=== PATIENT | female | born 1990 | race Caucasian/White ===

== ENCOUNTER 2021-12-31 08:18 | Inpatient (IN) ==
[2021-12-31] MEDS ORDERED: OXYTOCIN 30 UNITS/500 ML BAG IV PRN ×3 (09:02→17:21)
[2021-12-31] MEDS ORDERED: LIDOCAINE 1% LOCAL 20 ML VIAL INFIL PRN (09:02)
[2021-12-31] MEDS ORDERED: PENICILLIN G POTASSIUM 6 MU in DEXTROSE 5% 250 ML IV STA (09:04)
[2021-12-31] MEDS: LACTATED RINGER'S 1,000 ML IV PRN ×2 (09:23→15:40)
--- NOTE | 2021-12-31 09:40 | History & Physical Report ---
Date of Service December 31, 2021 Assessment & Plan (1) Post-dates : (2) Encounter for induction of labor: Plan admit, pitocin induction, epidural on exam, arom as indicated. fetus category one. anticipate . Admission and Anticipated Discharge Date Admission Date: December 31, 2021 History of Present Illness Chief Complaint: postdates Primary Care Provider: NO PCP Patient is a 31yowf with iup at 41 1/7 weeks who presents to labor and delivery for postdates induction. +fm. Some slight spotting after exam yesterday. no lof/vb. cx favorable in the office yesterday. and Delivery Plans Smoking in *5 cigarettes/ day COVID unvaccinated Pre-eclampsia last baby ASA @ 12 weeks Hx of Epilepsy not on meds, does not see a neuro *saw neuro 05/28/21-no recommendations to start medication at this time *follow up visit in August Depression/Anxiety Not on meds, sees counsellor GBS Positive *Treat in labor IOL 12/31 25 week U/S HC and BPD 3-4% MFM consult (10/12/21 @ [facility] [place] No microcephaly noted and no follow up needed OB Labs: Blood Type A Positive 05/26/21 Antibody Screen NEGATIVE 05/26/21 Hemoglobin 12.0 g/dl (12.0-16.0) 09/30/21 Hematocrit 35.0 % (34.1-44.9) 09/30/21 Mean Corpuscular Volume 92.0 fL (80-100) 06/23/21 Platelet Count 218 K/uL (130-400) 06/23/21 Rubella IgG Antibody Immune (Immune) 05/26/21 Rapid Plasma Reagin Nonreactive (Nonreactive) 05/26/21 Hepatitis B Surface Antigen. NON-REACTIVE (NON-REACTIVE) 05/26/21 Hepatitis C Antibody (EIA) NON-REACTIVE (NON-REACTIVE) 05/26/21 HIV (1&2) Ag and Ab Confirmation NON-REACTIVE (NON-REACTIVE) 05/26/21 Glucose 1 Hour 50 gm Load 115 mg/dl (70-130) 09/30/21 OB Optional Labs: Chlamydia trachomatis RNA NOT DETECTED (NOT DETECTED) 05/26/21 Neisseria gonorrhoeae RNA NOT DETECTED (NOT DETECTED) 05/26/21 Labs Reviewed: Declines cf/sma--mln low risk panorama declined afp gbs positive. Allergies Allergy/AdvReac Type Severity Reaction Status Date / Time No Known Allergies Allergy Verified 12/30/21 09:16 Home Medications Medication Instructions Recorded Confirmed Type prenat.vits,jassi,jhg-peoq-ljsfb PO DAILY 05/26/21 12/30/21 History aspirin 81 mg chewable tablet 81 mg PO DAILY 12/31/21 12/31/21 History fgwlgslj-[id number]-Rd-FA 1 mg 1 tab PO DAILY 12/31/21 12/31/21 History tablet Patient History Medical History Depression with anxiety Epilepsy History of anemia History of chicken pox History of shingles HSV-1 (herpes simplex virus 1) infection Hx of chlamydia infection Irregular menses PCOS (polycystic ovarian syndrome) Surgical History History of appendectomy [place] teeth extracted Family History Grandmother (Maternal) Breast cancer Ovarian cancer Hypertension Mother Ovarian cancer Gestational diabetes Brother Diabetes Denies family history of Cervical cancer Lung cancer Social History Smoking Status: Current every day smoker Tobacco Type: Cigarettes Cigarettes Per Day: 5 cigs per day.; Second Hand Exposure: No; Hx Alcohol Use: No Hx Substance Use: No Preferred Language: Kazakh Communication Ability: Effective marital status: Single marital status details: SANG Aury Brooksy Laurie (30) [phone] Current Living Situation: Family and Significant Other Current Living Situation Comment: FOB and 1 child with 2dogs and 3 cats ( FOB doing litter) current occupational status: employed current occupation: [employer] OB History Past Pregnancies Del. Date GA wks Lbr Lgth wt Sex Type del Anes Place Del Prov ? Comment 08/12/12 41 8 lbs 8oz M Epi dural [facility] Dr. Roth No Version for [employer] History noncontributory Physical Exam Constitutional: WD/WN, vitals as above Gastrointestinal (Abdomen): soft, gravid, nt Psychiatric: A+Ox3, euthymic affect Genitourinary: cx--3/75/-2/soft/post toco--irregular contractions efm--130s with mod variability, small accels, no decels Results & Data ([facility]) Vital Signs (Past 12 Hours) Vital Signs Temp Pulse Resp BP 12/31/21 08:53 36.8 C 83 20 105/57 L Coding Level of Care Code None Diagnoses Post-dates O48.0 Encounter for induction of labor Z34.90
[2021-12-31 09:53] LABS: Hematocrit (blood only) 38.7 % (34.1-44.9); Hemoglobin 13.7 g/dl (12.0-16.0); Mean Corpuscular Hemoglobin 31.9 pg (25.0-34.0); Mean Corpuscular Hgb Conc 35.4 g/dL (32.0-36.0); Mean Corpuscular Volume 90.2 fL (80.0-100.0); Mean Platelet Volume 11.2 fL (9.4-12.3); Platelet Count 190 K/uL (130-400); RDW Coefficient of Variation 13.3 % (11.5-14.5); RDW Standard Deviation 43.9 fL (36.4-46.3); Red Blood Count 4.29 M/uL (3.93-5.22); White Blood Count 10.93 K/ul (4.8-10.8)
[2021-12-31] MEDS ORDERED: PENICILLIN G POTASSIUM 3 MU in DEXTROSE 5% 100 ML IV PRN (12:02)
[2021-12-31] MEDS ORDERED: BUPIVACAINE 0.25% 30 ML VIAL ONE (13:51)
[2021-12-31] MEDS ORDERED: ePHEDrine sulfate 50 MG/ML AMP ONE (13:51)
[2021-12-31] MEDS ORDERED: SODIUM CHLORIDE 0.9% INJ 10 ML VIAL ONE (13:51)
[2021-12-31] MEDS ORDERED: fentaNYL citrate 100 MCG/2 ML VIAL ONE (13:51)
[2021-12-31] MEDS ORDERED: fentaNYL 2MCG/ML ROPIVACAINE 1.25MG/ML 100 ML BAG EPI ONE (13:52)
[2021-12-31] MEDS ORDERED: LIDOCAINE 2%/EPINEPHRINE 1:200,000 20 ML SDV ONE (13:52)
[2021-12-31] MEDS ORDERED: NALOXONE HCL 1 MG in SODIUM CHLORIDE 0.9% 1000ML 1,000 ML IV PRN (13:54)
[2021-12-31] MEDS ORDERED: diphenhydrAMINE 50 MG/ML VIAL IV PRN (13:54)
[2021-12-31] MEDS ORDERED: NALBUPHINE HCL INJ 10 MG/ML AMP IV PRN (13:54)
[2021-12-31] MEDS ORDERED: ONDANSETRON INJ 2 MG/ML 2 ML VIAL IV PRN (13:54)
[2021-12-31] MEDS ORDERED: ePHEDrine sulfate 50 MG/ML AMP IV PRN (13:54)
[2021-12-31] MEDS ORDERED: NALOXONE HCL 0.4 MG/1 ML VIAL/CARP IV PRN (13:54)
[2021-12-31] MEDS ORDERED: fentaNYL 2MCG/ML ROPIVACAINE 1.25MG/ML 100 ML BAG EPI PRN (13:54)
--- NOTE | 2021-12-31 13:54 | Anesthesiology Consultation ---
Date of Service December 31, 2021 Assessment & Plan ASA ASA3 Proposed Anesthesia Anesthesia Type: Labor Epidural Risk / Benefits Reviewed With: PT / POA / Parent / Guardian, Accepts Plan and Informed Consent Obtained History Height/Weight Height: 5 ft 2 in Weight: 80.379 kg Allergies Allergy/AdvReac Type Severity Reaction Status Date / Time No Known Allergies Allergy Verified 12/30/21 09:16 Medications Home Medications Medication Instructions Recorded Confirmed Last Taken prenat.vits,jassi,yff-jfxj-gyhsa PO DAILY 05/26/21 12/30/21 Unknown aspirin 81 mg chewable tablet 81 mg PO DAILY 12/31/21 12/31/21 12/30/21 08:00 pcbogxlz-ukd-Cu-FA 1 mg 1 tab PO DAILY 12/31/21 12/31/21 12/30/21 08:00 tablet Active Medications Generic Name Dose Route Start Last Admin Trade Name Freq PRN Reason Stop Dose Admin Lactated Ringer's 1,000 mls @ 125 mls/hr 12/31/21 09:02 12/31/21 14:14 Lr IV 01/02/22 09:01 Infused .Q8H PRN Titration L&D Protocol Protocol Oxytocin 30 units in 500 mls @ 12 mls/hr 12/31/21 10:14 12/31/21 13:30 Pitocin IV 01/02/22 10:13 0.72 units/hr .Q24H PRN 12 mls/hr Labor Induction/Augmentation Titration Protocol 0.72 UNITS/HR Past Medical History Medical History Depression with anxiety Epilepsy History of anemia History of chicken pox History of shingles HSV-1 (herpes simplex virus 1) infection Hx of chlamydia infection Irregular menses PCOS (polycystic ovarian syndrome) Exercise / Class Metabolic Activity II 4-5 Yardwork/Stairs/Walk up hill Past Family History Family History Grandmother (Maternal) Breast cancer Ovarian cancer Hypertension Mother Ovarian cancer Gestational diabetes Brother Diabetes Denies family history of Cervical cancer Lung cancer Past Surgical History Surgical History History of appendectomy [place] teeth extracted Past Anesthesia History No Hx of Anesthesia Complications and No Family Hx of Anesthesia Complications History of PONV No Hx of PONV and No Hx of Motion Sickness Social History Smoking Status: Current every day smoker tobacco type: cigarettes Smoking cigarettes per day: 5 Hx Alcohol Use: No Hx Substance Use: No Review of Systems denies fever/cough/ colds/ chest pain/ SOB/ ANASTACIO denies ANASTACIO Physical Exam Vital Signs Last Vital Signs Temp 36.8 C 12/31/21 09:28 Pulse 88 12/31/21 14:21 Resp 20 12/31/21 09:28 BP 117/70 12/31/21 14:21 Pulse Ox 96 12/31/21 14:17 ENMT Mouth: no TMJ abnormality and no dentition abnormality Thyromental Distance: > or= 3.5 Finger Breadths Mallampati Class: II Neck neck extension not limited Respiratory normal respiratory effort; no respiratory distress Auscultation: lungs clear to auscultation bilaterally Cardiovascular Rate/Rhythm: regular rate and regular rhythm Neurologic moves all extremities Psychiatric Orientation: alert and oriented x 3 Testing Laboratory Results 12/31/21 09:29
--- NOTE | 2021-12-31 15:39 | Labor Progress Brief Note ---
Date of Service December 31, 2021 Subjective comfortable, ? rom Assessment & Plan (1) Encounter for induction of labor: Plan continue current management. fetus overall reassuirng. anticipate . Admission and Anticipated Discharge Date Admission Date: December 31, 2021 Physical Exam Physical Exam: pads wet cx--/-2, cannot palpate membranes toco--q3-4min, pit at 12 efm--130s with mod variability, early/variable noted. Results & Data ([facility]) Vital Signs (Past 12 Hours) Vital Signs Temp Pulse Resp BP Pulse Ox 12/31/21 09:28 36.8 C 20 12/31/21 15:34 77 105/58 L 12/31/21 15:32 78 92 12/31/21 15:27 87 91 12/31/21 15:24 76 106/59 L 12/31/21 15:22 83 91 12/31/21 15:17 102 H 91 12/31/21 15:15 73 108/57 L 12/31/21 15:12 96 H 92 12/31/21 15:07 96 H 93 12/31/21 15:04 74 114/58 L 12/31/21 15:02 82 93 12/31/21 14:57 90 96 12/31/21 14:54 76 115/56 L 12/31/21 14:52 91 H 95 12/31/21 14:47 72 95 12/31/21 14:42 83 96 12/31/21 14:37 90 96 12/31/21 14:35 85 122/64 12/31/21 14:34 20 12/31/21 14:34 36.6 C 20 12/31/21 14:32 89 96 12/31/21 14:27 88 94 12/31/21 14:25 74 94 12/31/21 14:23 75 117/57 L 12/31/21 14:22 89 94 12/31/21 14:21 88 117/70 12/31/21 14:19 93 H 114/69 12/31/21 14:17 89 117/73 96 12/31/21 14:13 75 118/83 12/31/21 14:12 86 97 12/31/21 14:07 75 96 12/31/21 14:02 97 H 95 12/31/21 12:01 79 94/63 L 12/31/21 08:53 36.8 C 83 20 105/57 L Coding Level of Care Code None Diagnoses Encounter for induction of labor Z34.90
[2021-12-31] MEDS ORDERED: bisacodyL 10 MG SUPP PR PRN (17:21)
[2021-12-31] MEDS ORDERED: BENZOCAINE 20% AER SPR 82.5 GM CAN EXT PRN (17:21)
[2021-12-31] MEDS ORDERED: oxyCODONE/ACETAMINOPHEN 5mg/325mg TAB PO PRN (17:21)
[2021-12-31] MEDS ORDERED: DIPHTHERIA/TETANUS/PERTUSSIS 0.5 ML SYR/VIAL IM ONE (17:21)
[2021-12-31] MEDS ORDERED: HYDROCORTISONE ACETATE 25 MG SUPP PR PRN (17:21)
--- NOTE | 2021-12-31 17:21 | Delivery Summary ---
Vaginal Delivery Summary Date of Service December 31, 2021 Vaginal Delivery Summary (periuretral laceration) Pre-operative Diagnosis: at 41 1/7 weeks Post-operative Diagnosis: same Procedure: pitocin induction epidural arom periurethral lac and repair EBL: 300cc Anesthesia: epidural Procedure: The patient presents to labor and delivery for postdates induction. Pitocin was started, she got an epidural, had arom for clear fluid. Progressed to c/c/+3. The patient pushed for two contractions to deliver a viable female in mitali position. Their was a tight nuchal cord was clamped and cut on the perineum. The rest of the infant was then delivered without difficulty. The baby The infant was placed in the maternal abdomen for drying and attention. Cord blood obtained. Placenta delivered spontaneous, intact with a three vessel cord. Cervix/sulci/rectum/perineum were intact. A laceration above the urethra between the labia was repaired in the normal standard fashion. Hemostasis obtained with dilute pitocin and fundal massage. Apgars were 7/8. Mother and baby doing well at the end of the delivery. [facility] Vaginal Delivery Charge Delivery Type Details: (periuretral laceration)
--- NOTE | 2021-12-31 18:03 | Anesthesia Procedure Note ---
Date of Service December 31, 2021 Anesthesia Post Epidural Note Vital Signs Vital Signs: Temp Pulse Resp BP Pulse Ox 36.6 C 76 20 111/64 96 12/31/21 14:34 12/31/21 17:47 12/31/21 14:34 12/31/21 17:47 12/31/21 17:07 Notes Mental Status: alert / awake / arousable and participated in evaluation Nausea / Vomiting: adequately controlled Pain: adequately controlled Airway Patency, RR, SpO2: stable & adequate BP & HR: stable & adequate Hydration State: stable & adequate Neuraxial Anesthesia: was administered and sensory block is resolving Anesthetic Complications: no major complications apparent and Pt Satisfied with anesthetic care Epidural: Removed without complications and With tip intact
--- NOTE | 2021-12-31 18:03 | Anesthesiology Progress Note ---
Date of Service December 31, 2021 Anesthesia Post Procedure Vital Signs Vital Signs: Temp Pulse Resp BP Pulse Ox 12/31/21 09:28 36.8 C 20 12/31/21 17:47 76 111/64 12/31/21 17:32 87 118/63 12/31/21 17:17 89 107/63 12/31/21 17:14 83 105/59 L 12/31/21 17:07 81 96 12/31/21 17:02 86 98 12/31/21 16:57 80 98 12/31/21 16:52 74 97 12/31/21 16:47 73 95 12/31/21 16:42 63 97 12/31/21 16:37 81 96 12/31/21 16:35 74 109/59 L 12/31/21 16:32 73 96 12/31/21 16:27 74 96 12/31/21 16:25 85 106/63 12/31/21 16:22 74 95 12/31/21 16:17 75 95 12/31/21 16:15 77 107/64 12/31/21 16:12 83 95 12/31/21 16:07 72 95 12/31/21 16:04 82 104/56 L 12/31/21 16:02 68 94 12/31/21 15:57 86 95 12/31/21 15:56 86 108/59 L 12/31/21 15:52 79 93 12/31/21 15:47 85 91 12/31/21 15:44 78 101/56 L 12/31/21 15:42 80 93 12/31/21 15:37 71 94 12/31/21 15:34 77 105/58 L 12/31/21 15:32 78 92 12/31/21 15:27 87 91 12/31/21 15:24 76 106/59 L 12/31/21 15:22 83 91 12/31/21 15:17 102 H 91 12/31/21 15:15 73 108/57 L 12/31/21 15:12 96 H 92 12/31/21 15:07 96 H 93 12/31/21 15:04 74 114/58 L 12/31/21 15:02 82 93 12/31/21 14:57 90 96 12/31/21 14:54 76 115/56 L 12/31/21 14:52 91 H 95 12/31/21 14:47 72 95 12/31/21 14:42 83 96 12/31/21 14:37 90 96 12/31/21 14:35 85 122/64 12/31/21 14:34 20 12/31/21 14:34 36.6 C 20 12/31/21 14:32 89 96 12/31/21 14:27 88 94 12/31/21 14:25 74 94 12/31/21 14:23 75 117/57 L 12/31/21 14:22 89 94 12/31/21 14:21 88 117/70 12/31/21 14:19 93 H 114/69 12/31/21 14:17 89 117/73 96 12/31/21 14:13 75 118/83 12/31/21 14:12 86 97 12/31/21 14:07 75 96 12/31/21 14:02 97 H 95 12/31/21 12:01 79 94/63 L 12/31/21 08:53 36.8 C 83 20 105/57 L Transfer of Care Handoff Completed per policy Notes Mental Status: alert / awake / arousable and participated in evaluation Patient Amnestic to Procedure: Yes Nausea / Vomiting: adequately controlled Pain: adequately controlled Airway Patency, RR, SpO2: stable & adequate BP & HR: stable & adequate Hydration State: stable & adequate Anesthetic Complications: no major complications apparent and Pt Satisfied with anesthetic care
[2021-12-31] MEDS: IBUPROFEN 600 MG TAB PO PRN (19:45)
[2021-12-31] MEDS: DOCUSATE SODIUM 100 MG CAP PO SCH (20:23)
[2022-01-01] MEDS: IBUPROFEN 600 MG TAB PO PRN ×3 (03:16→14:34)
[2022-01-01] MEDS: ACETAMINOPHEN 325 MG TAB PO PRN ×2 (03:17→15:43)
--- NOTE | 2022-01-01 05:53 | Obstetrical Progress Note ---
Date of Service <Jasmin Reese - Last Filed: 01/01/22 06:55> January 01, 2022 Assessment & Plan <Jasmin Reese - Last Filed: 01/01/22 06:55> (1) Status post vaginal delivery: continue OOB, ambulation, diet as tolerated <Gisela Morelos MD, FACOG - Last Filed: 01/01/22 07:06> (1) Status post vaginal delivery: Subjective <Jasmin Reese - Last Filed: 01/01/22 06:55> Mariluz is a 31 y/o female who is now PPD # 1 following spontaneous vaginal delivery at 41 1/7 weeks. Reports feeling well overall this morning. Moderate abdominal cramping that has improved from last night, pain well managed on analgesics. Voiding. Tolerating meals overnight and able to ambulate some. Some persistent lochia with some improvement this morning. Breast feeding. Review of Systems Denies fever, chills, sweats Denies shortness of breath, difficulty breathing, chest pain, palpitations, chest pressure. Denies breast pain. Denies dysuria. Denies headache or changes in vision. Physical Exam <Jasmin Reese - Last Filed: 01/01/22 06:55> General: Alert, oriented. No acute distress. Cardiac: Regular rate and rhythm, no murmurs/rubs/gallops. Respiratory: Clear to auscultation bilaterally a/p, no wheezes/rales/rhonchi. No increased work of breathing. Symmetrical chest rise. No respiratory distress. Abdomen: Soft, nontender, nondistended. Uterus: Uterine fundus firm, palpable 2 cm below umbilicus. Lower Extremities: No lower extremity edema or swelling. No deep calf pain. Xiang's negative bilaterally. Results & Data ([facility]) <Jasmin Reese - Last Filed: 01/01/22 06:55> Vital Signs (Past 12 Hours) Vital Signs Temp Pulse Pulse Resp BP BP Pulse Ox 01/01/22 03:55 36.7 C 81 20 110/60 96 12/31/21 23:25 36.6 C 82 20 105/66 98 12/31/21 20:00 36.5 C 95 H 16 111/67 99 12/31/21 19:17 85 110/59 L 12/31/21 19:02 85 109/54 L 12/31/21 18:47 90 165/65 H 12/31/21 18:32 88 109/60 12/31/21 18:17 83 114/61 12/31/21 18:02 87 117/58 L O2 Del Method 01/01/22 03:55 Room Air 12/31/21 23:25 Room Air 12/31/21 20:00 Room Air 12/31/21 19:17 12/31/21 19:02 12/31/21 18:47 12/31/21 18:32 12/31/21 18:17 12/31/21 18:02 <Gisela Morelos MD, FACOG - Last Filed: 01/01/22 07:06> Co-Signing Physician Notes Resident Physician Supervision Note: I interviewed and examined the patient. Discussed with Dr. Reese and agree with findings and plan as documented in the note. Any exceptions or clarifications are listed here: Doing well. routine care. May want d/c tonight, undecided. Documented By: Gisela Morelos MD, FACOG Resident Activity Tracking <Jasmin Reese, - Last Filed: 01/01/22 06:55> Resident Involvement: Resident Care Provided Care Provided: OB Delivery (Post )
[2022-01-01 07:46] LABS: Hematocrit (blood only) 39.6 % (34.1-44.9); Hemoglobin 13.5 g/dl (12.0-16.0)
[2022-01-01] MEDS ORDERED: PRENATAL VITAMIN 1 TAB PO SCH (08:00)
[2022-01-01] MEDS: DOCUSATE SODIUM 100 MG CAP PO SCH (08:12)
[2022-01-01] MEDS ORDERED: bisacodyL 5 MG TABEC PO SCH (20:00)
== END 2022-01-01 18:51 | disposition home or self-care (01) | DRG 807 ==
LOC: 4S1 08:18 → 4E2 19:45
DX: O48.0 Post-term pregnancy; F17.210 Nicotine dependence, cigarettes, uncomplicated; O99.334 Smoking (tobacco) complicating childbirth; Z3A.41 41 weeks gestation of pregnancy; O71.82 Other specified trauma to perineum and vulva; Z37.0 Single live birth

== ENCOUNTER 2023-06-09 14:03 | Inpatient (IN) ==
[2023-06-09] MEDS ORDERED: LIDOCAINE 1% LOCAL 20 ML VIAL INFIL PRN (14:14)
[2023-06-09] MEDS ORDERED: OXYTOCIN 30 UNITS/NSS 30 UNITS/500 ML BAG IV PRN ×2 (14:14→22:06)
--- NOTE | 2023-06-09 14:56 | Labor Progress Brief Note ---
Date of Service June 09, 2023 Subjective @ 40wk sent from office today, where NST was nonreassuring during a routine KAMILA visit. On arrival pt with good FM, no Ctx, no LOF, no VB. Assessment & Plan (1) Encounter for supervision of normal in multigravida, antepartum: Plan: Patient with possible NRFHT earlier today vs possible maternal tracing. Currently reassuring FHT, but also at 40wk gestation. Discussed with patient I think status is good right now, but I would be happy to offer IOL given her gestational age and earlier concerns. She gladly accepts. Will start pit, will get epidural prn Admission and Anticipated Discharge Date Admission Date: June 09, 2023 Physical Exam Genitourinary: Here on L&D: FHT 125 mod shelli +acc -dec Single variable noted when patient sat up for IV placement. Otherwise, no decels. Office NST reviewed Unclear if maternal HR was detected (break in tracing after which HR is low, then doubled, then low again) vs true decel x2. 3/80/-2 [place] with LAWs Q1-2, nothing painful or palpable. Results & Data Vital Signs (Past 12 Hours) Vital Signs Temp Pulse Resp BP 06/09/23 14:18 82 110/66 06/09/23 14:14 98.4 F 82 16 110/66 Coding Level of Care Code None Diagnoses Encounter for supervision of normal in multigravida, antepartum Z34.80
[2023-06-09 14:58] LABS: Hematocrit (blood only) 37.4 % (37.0-47.0); Hemoglobin 13.1 g/dl (12.0-16.0); Mean Corpuscular Hemoglobin 31.2 pg (25.0-34.0); Mean Platelet Volume 10.8 fL (9.4-12.4); Platelet Count 198 K/uL (130-400); RDW Coefficient of Variation 13.4 % (11.5-14.5); RDW Standard Deviation 43.7 fL (36.4-46.3); White Blood Count 9.28 K/ul (4.8-10.8)
[2023-06-09] MEDS: LACTATED RINGER'S 1,000 ML IV PRN (14:58)
[2023-06-09] MEDS: OXYTOCIN 30 UNITS/NSS 30 UNITS/500 ML BAG IV PRN (15:06)
--- NOTE | 2023-06-09 16:46 | Anesthesiology Consultation ---
Date of Service June 09, 2023 Assessment & Plan (1) Encounter for pre-operative examination: Chart Review Chart Review: Acceptable Risk for Labor Epidural History Height/Weight Height: 5 ft 2 in Weight: 77.111 kg Allergies Allergy/AdvReac Type Severity Reaction Status Date / Time No Known Allergies Allergy Verified 06/09/23 13:04 Medications Home Medications Medication Instructions Recorded Confirmed Last Taken prenat.vits,jassi,txp-feqs-cbnqy PO DAILY 05/26/21 06/09/23 Unknown aspirin 81 mg tablet,delayed 81 mg PO DAILY 01/18/23 06/09/23 Unknown release folic acid 4 mg PO DAILY 01/18/23 06/09/23 Unknown Active Medications Generic Name Dose Route Start Last Admin Trade Name Freq PRN Reason Stop Dose Admin Lactated Ringer's 1,000 mls @ 125 mls/hr 06/09/23 14:14 06/09/23 16:30 Lr IV 06/11/23 14:13 999 mls/hr .Q8H PRN Infusion L&D Protocol Protocol Oxytocin 30 units in 500 mls @ 4 mls/hr 06/09/23 14:48 06/09/23 16:30 Pitocin 30 Units/Nss IV 06/11/23 14:47 0.36 units/hr .Q24H PRN 6 mls/hr Labor Induction/Augmentation Titration Protocol 0.24 UNITS/HR Past Medical History Medical History Date of last menstrual period (LMP) unknown History of shingles HSV-1 (herpes simplex virus 1) infection oral, no genital Hx of chlamydia infection in her teens History of chicken pox Irregular menses PCOS (polycystic ovarian syndrome) History of anemia Depression with anxiety Epilepsy Past Family History Family History Grandmother (Maternal) Breast cancer Ovarian cancer Hypertension Mother Ovarian cancer Gestational diabetes Brother Diabetes Denies family history of Cervical cancer Lung cancer Past Surgical History Surgical History [place] teeth extracted History of appendectomy Social History Smoking Status: Current every day smoker tobacco type: cigarettes Smoking cigarettes per day: 1-2 Do You Dip or Chew Tobacco: No Hx Alcohol Use: No Hx Substance Use: No Physical Exam Vital Signs Last Vital Signs Temp 36.9 C 06/09/23 14:14 Pulse 77 06/09/23 16:44 Resp 16 06/09/23 14:14 BP 92/50 L 06/09/23 16:17 Pulse Ox 97 06/09/23 16:44 Testing Laboratory Results 06/09/23 14:29
[2023-06-09] MEDS: LIDOCAINE 2%/EPINEPHRINE 1:200,000 20 ML PF ONE (17:06)
[2023-06-09] MEDS: fentANYL 2 MCG/ML BUPIVacaine 0.125%-NSS 100ML BAG ONE (17:07)
[2023-06-09] MEDS: BUPIVACAINE 0.25% PF 30 ML VIAL ONE (17:07)
[2023-06-09] MEDS: fentaNYL citrate PF 100 MCG/2 ML VIAL ONE (17:07)
[2023-06-09] MEDS: ePHEDrine sulfate 50 MG/ML AMP ONE (17:14)
[2023-06-09] MEDS ORDERED: NALOXONE HCL 0.4 MG/1 ML VIAL/CARP IV PRN (17:16)
[2023-06-09] MEDS ORDERED: ROPIVACAINE 0.5% PF 5 MG/ML 20 ML VIAL EPI PRN (17:16)
[2023-06-09] MEDS ORDERED: ONDANSETRON INJ 2 MG/ML 2 ML VIAL IV PRN (17:16)
[2023-06-09] MEDS ORDERED: NALOXONE HCL 1 MG in SODIUM CHLORIDE 0.9% 1,000 ML IV PRN (17:16)
[2023-06-09] MEDS ORDERED: ePHEDrine sulfate 50 MG/ML AMP IV PRN (17:16)
[2023-06-09] MEDS ORDERED: SODIUM CHLORIDE 0.9% PF INJ 10 ML VIAL EPI PRN (17:16)
[2023-06-09] MEDS ORDERED: BUPIVACAINE 0.25% PF 30 ML VIAL EPI PRN (17:16)
[2023-06-09] MEDS ORDERED: LIDOCAINE 2% MPF LOCAL 5 ML VIAL EPI PRN (17:16)
[2023-06-09] MEDS ORDERED: fentANYL 2 MCG/ML BUPIVacaine 0.125%-NSS 100ML BAG EPI PRN (17:16)
[2023-06-09] MEDS ORDERED: fentaNYL citrate PF 100 MCG/2 ML VIAL EPI PRN (17:16)
[2023-06-09] MEDS: SODIUM CHLORIDE 0.9% PF INJ 10 ML VIAL ONE (17:19)
--- NOTE | 2023-06-09 22:01 | Delivery Summary ---
Vaginal Delivery Summary Date of Service June 09, 2023 Vaginal Delivery Summary DIAGNOSES: 1. Michel intrauterine at 40w0d gestation. 2. Induction of Labor. 3. Group B Streptococcus Neg. PROCEDURE: Spontaneous vaginal delivery without laceration. SURGEON: Jacqueline Adams MD. CHORUS MASTER: None. QUANTITATIVE BLOOD LOSS: 125 mL. COMPLICATIONS: None. PLACENTA: Spontaneous and intact with a 3-vessel cord. DISPOSITION: Stable to labor and delivery. DESCRIPTION: The patient pushed well and brought the head to in OA position. The infant's head was allowed to deliver with contraction force and no further active pushing, with the perineum protected during this time. There was a tight nuchal cord reduced at the perineum. The left shoulder was anterior. The shoulders and body did not deliver on the next push, so Jenae and Suprapubic pressure were employed. The shoulders still did not deliver, so the posterior arm was swept. Of note, the posterior arm was positioned alongside the body, fully extended, and towards the baby's back; as soon as it was swept forward across the chest and its elbow flexed, but without it being fully swept out of the vaginal vault, the was felt to move more freely. The maneuver was stopped there, another push was given by mom, and the shoulders and body delivered smoothly. The was placed on the maternal abdomen. It was vigorous and moving all extremities, and making respiratory efforts. The cord was doubly clamped by the MD and then cut. The placenta delivered spontaneously and was noted to be intact and with a 3VC. The cervix, vagina and perineum were examined and were found to be without defect requiring repair. The fundus was firm and lochia minimal immediately after delivery. [facility] Vaginal Delivery Charge Vaginal Delivery Codes: 49939 global code for the antepartum, delivery, and post-
[2023-06-09] MEDS ORDERED: HYDROCORTISONE ACETATE 25 MG SUPP PR PRN (22:06)
[2023-06-09] MEDS ORDERED: oxyCODONE/ACETAMINOPHEN 5mg/325mg TAB PO PRN (22:06)
[2023-06-09] MEDS ORDERED: bisacodyL 10 MG SUPP PR PRN (22:06)
[2023-06-09] MEDS: IBUPROFEN 600 MG TAB PO PRN (23:06)
[2023-06-09] MEDS: BENZOCAINE 20% SPRY 85 APPLN/85 GM CAN EXT PRN (23:07)
[2023-06-10] MEDS: DIPHTHER/TETAN/PERTUS Vaccine (Tdap, Adol/Adult) 0.5mL IM ONE (00:32)
[2023-06-10] MEDS: ACETAMINOPHEN 325 MG TAB PO PRN (00:43)
[2023-06-10] MEDS: LIDOCAINE 2%/EPINEPHRINE 1:200,000 20 ML PF EPI STA (01:12)
[2023-06-10] MEDS: SODIUM CHLORIDE 0.9% PF INJ 10 ML VIAL EPI STA (01:12)
[2023-06-10] MEDS: fentaNYL citrate PF 100 MCG/2 ML VIAL EPI STA (01:12)
[2023-06-10] MEDS: BUPIVACAINE 0.25% PF 30 ML VIAL EPI STA (01:12)
--- NOTE | 2023-06-10 06:06 | Obstetrical Progress Note ---
Date of Service <Tl Horta DO - Last Filed: 06/10/23 06:06> June 10, 2023 Assessment & Plan <Tl Horta DO - Last Filed: 06/10/23 06:06> (1) Encounter for assessment: Plan 33 y/o PPD#1 Eating well, voiding well, ambulating well Vitals reviewed, WNL Pain well controlled with Motrin Routine post care - OOB, ambulation, diet progression as tolerated Will have 6 week follow up with Dr. Adams <Jacqueline Adams MD - Last Filed: 06/10/23 06:56> (1) Encounter for assessment: Subjective <Tl Horta DO - Last Filed: 06/10/23 06:06> Ambulation: ambulating normally Voiding: no voiding problems Passing Gas:: Yes Diet Tolerance:: regular diet Lochia:: Small Feeding Type:: bottle feeding pain well controlled with Motrin Review of Systems -Denies fever or chills -Denies dyspnea, chest pain, or palpitations -Denies dysuria -mild headache since resolved, denies changes in vision Physical Exam <Tl Horta DO - Last Filed: 06/10/23 06:06> General: Alert and oriented. No acute distress Cardiac: Regular rate and rhythm, no murmurs appreciated Respiratory: Lungs clear to auscultation bilaterally, No increased work of breathing Abdominal: Soft, non-tender, non-distended. Bowel sounds present. Uterus: Uterine fundus firm, palpable below umbilicus Extremities: No lower extremity edema, calves non-tender bilaterally Results & Data <Tl Horta DO - Last Filed: 06/10/23 06:06> Vital Signs (Past 12 Hours) Vital Signs Temp Pulse Pulse Resp BP BP Pulse Ox 06/10/23 04:20 36.8 C 72 16 101/57 L 96 06/10/23 00:20 36.5 C 74 18 102/61 97 06/09/23 23:47 88 109/59 L 06/09/23 23:32 93 H 107/58 L 06/09/23 23:17 70 99/56 L 06/09/23 23:02 65 92/55 L 06/09/23 22:47 74 110/59 L 06/09/23 22:32 76 104/56 L 06/09/23 22:17 80 100/51 L 06/09/23 22:02 96 H 129/58 L 06/09/23 21:59 101 H 97 06/09/23 21:54 97 H 96 06/09/23 21:49 119 H 95 06/09/23 21:44 107 H 88 L 06/09/23 21:39 99 H 97 06/09/23 21:34 82 96 06/09/23 21:31 99 H 114/60 06/09/23 21:30 18 06/09/23 21:30 18 06/09/23 21:24 85 96 06/09/23 21:19 77 96 06/09/23 21:16 67 110/55 L 06/09/23 21:14 67 97 06/09/23 21:09 80 96 06/09/23 21:04 82 95 06/09/23 21:01 72 95/62 L 06/09/23 20:59 71 93 06/09/23 20:54 68 93 06/09/23 20:49 73 93 06/09/23 20:45 72 100/55 L 06/09/23 20:44 73 93 06/09/23 20:39 69 94 06/09/23 20:34 70 94 06/09/23 20:30 65 97/55 L 06/09/23 20:29 67 94 06/09/23 20:24 65 95 06/09/23 20:19 77 95 06/09/23 20:14 62 96 06/09/23 20:11 70 104/58 L 06/09/23 20:09 73 96 06/09/23 20:06 74 106/60 06/09/23 20:04 73 97 06/09/23 20:00 77 91/54 L 06/09/23 19:59 78 96 06/09/23 19:56 82 93/55 L 06/09/23 19:54 77 97 06/09/23 19:50 76 93/52 L 06/09/23 19:49 77 96 06/09/23 19:45 76 92/52 L 06/09/23 19:44 78 97 06/09/23 19:40 81 89/53 L 06/09/23 19:39 77 95 06/09/23 19:34 70 90/55 L 95 04/04/24 19:31 83 95/53 L 06/09/23 19:29 72 95 06/09/23 19:24 75 81/47 L 96 06/09/23 19:20 74 89/50 L 06/09/23 19:19 71 95 06/09/23 19:14 86 80/52 L 96 06/09/23 19:10 74 84/48 L 06/09/23 19:09 97 06/09/23 19:09 76 06/09/23 19:09 75 89/52 L 06/09/23 19:05 85 86/47 L 06/09/23 19:04 80 97 06/09/23 19:01 80 89/53 L 06/09/23 19:00 16 06/09/23 19:00 36.5 C 16 06/09/23 19:00 16 06/09/23 19:00 16 06/09/23 18:59 81 96 06/09/23 18:56 78 83/52 L 06/09/23 18:54 79 95 06/09/23 18:51 78 105/61 06/09/23 18:49 78 96 06/09/23 18:44 86 95/53 L 96 06/09/23 18:39 83 93/50 L 95 06/09/23 18:34 71 99/54 L 96 06/09/23 18:30 71 18 100/57 L 06/09/23 18:29 69 94 06/09/23 18:27 78 102/59 L 06/09/23 18:24 74 95 06/09/23 18:21 72 100/58 L 06/09/23 18:19 81 95 06/09/23 18:17 70 94 06/09/23 18:16 104 H 83/51 L 06/09/23 18:14 75 95 06/09/23 18:11 75 103/57 L 94 06/09/23 18:10 36.6 C 06/09/23 18:09 85 96 O2 Del Method 06/10/23 04:20 Room Air 06/10/23 00:20 Room Air 06/09/23 23:47 06/09/23 23:32 06/09/23 23:17 06/09/23 23:02 06/09/23 22:47 06/09/23 22:32 06/09/23 22:17 06/09/23 22:02 06/09/23 21:59 06/09/23 21:54 06/09/23 21:49 06/09/23 21:44 06/09/23 21:39 06/09/23 21:34 06/09/23 21:31 06/09/23 21:30 06/09/23 21:30 06/09/23 21:24 06/09/23 21:19 06/09/23 21:16 06/09/23 21:14 06/09/23 21:09 06/09/23 21:04 06/09/23 21:01 06/09/23 20:59 06/09/23 20:54 06/09/23 20:49 06/09/23 20:45 06/09/23 20:44 06/09/23 20:39 06/09/23 20:34 06/09/23 20:30 06/09/23 20:29 06/09/23 20:24 06/09/23 20:19 06/09/23 20:14 06/09/23 20:11 06/09/23 20:09 06/09/23 20:06 06/09/23 20:04 06/09/23 20:00 06/09/23 19:59 06/09/23 19:56 06/09/23 19:54 06/09/23 19:50 06/09/23 19:49 06/09/23 19:45 06/09/23 19:44 06/09/23 19:40 06/09/23 19:39 06/09/23 19:34 06/09/23 19:31 06/09/23 19:29 06/09/23 19:24 06/09/23 19:20 06/09/23 19:19 06/09/23 19:14 06/09/23 19:10 06/09/23 19:09 06/09/23 19:09 06/09/23 19:09 06/09/23 19:05 06/09/23 19:04 06/09/23 19:01 06/09/23 19:00 06/09/23 19:00 06/09/23 19:00 06/09/23 19:00 06/09/23 18:59 06/09/23 18:56 06/09/23 18:54 06/09/23 18:51 06/09/23 18:49 06/09/23 18:44 06/09/23 18:39 06/09/23 18:34 06/09/23 18:30 06/09/23 18:29 06/09/23 18:27 06/09/23 18:24 06/09/23 18:21 06/09/23 18:19 06/09/23 18:17 06/09/23 18:16 06/09/23 18:14 06/09/23 18:11 06/09/23 18:10 06/09/23 18:09 Supervising Physician <Jacqueline Adams MD - Last Filed: 06/10/23 06:56> Co-Signing Physician Notes Resident Physician Supervision Note: I interviewed and examined the patient. Discussed with Dr. Horta and agree with findings and plan as documented in the note. Any exceptions or clarifications are listed here: [ ] Documented By: Jacqueline Adams MD, FACOG Resident Activity Tracking <Tl Horta DO - Last Filed: 06/10/23 06:06> Resident Involvement: Resident Care Provided Care Provided: OB Delivery
[2023-06-10 08:10] LABS: Hematocrit (blood only) 37.7 % (37.0-47.0); Hemoglobin 12.7 g/dl (12.0-16.0); Mean Corpuscular Hemoglobin 30.5 pg (25.0-34.0); Mean Corpuscular Hgb Conc 33.7 g/dL (32.0-36.0); Mean Corpuscular Volume 90.4 fL (80.0-100.0); Mean Platelet Volume 10.9 fL (9.4-12.4); Platelet Count 196 K/uL (130-400); RDW Coefficient of Variation 13.6 % (11.5-14.5); RDW Standard Deviation 45.1 fL (36.4-46.3); Red Blood Count 4.17 M/uL (4.20-5.40); White Blood Count 10.45 K/ul (4.8-10.8)
[2023-06-10] MEDS: PRENATAL VITAMIN 1 TAB PO SCH (08:35)
[2023-06-10] MEDS: DOCUSATE SODIUM 100 MG CAP PO SCH (08:35)
--- NOTE | 2023-06-10 14:36 | Anesthesia Procedure Note ---
Date of Service June 10, 2023 Anesthesia Post Epidural Note Vital Signs Vital Signs: Temp Pulse Resp BP Pulse Ox O2 Del Method 36.8 C 72 16 101/57 L 96 Room Air 06/10/23 04:20 06/10/23 04:20 06/10/23 04:20 06/10/23 04:20 06/10/23 04:20 06/10/23 04:20 Pain Intensity Neck: Pain Intensity: 4 Notes Mental Status: alert / awake / arousable Nausea / Vomiting: adequately controlled Pain: adequately controlled Airway Patency, RR, SpO2: stable & adequate BP & HR: stable & adequate Hydration State: stable & adequate Neuraxial Anesthesia: was administered and sensory block is resolving Anesthetic Complications: no major complications apparent and Pt Satisfied with anesthetic care Epidural: Removed without complications and With tip intact
[2023-06-10] MEDS: bisacodyL 5 MG TABEC PO SCH (20:46)
== END 2023-06-10 22:45 | disposition home or self-care (01) | DRG 807 ==
LOC: OPB 14:03 → 4S1 14:05 → 4E2 06-10 00:39